=== PATIENT | male | born 1965 | race Caucasian/White ===

== ENCOUNTER 2016-03-07 19:34 | Emergency (ER) | payer OTHER ==
[~2016-03-07] VITALS: Ht 167.6 cm; Wt 102.1 kg
--- NOTE | ~2016-03-07 | EKG ---
[address] [place] [address] ELECTROCARDIOGRAM REPORT Name: KIARA LENNON Room #: DEP JC Girard#: [id number] Admission: 03/07/16 Attend Phys: Discharge: 03/08/16 Date of : 69 Report #: [id number] THIS REPORT FOR: //name// 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
[~2016-03-07 19:34] MED LIST: APAP650 PO; AZITHROMYCIN250 MG PO; MUCINEX600 MG PO; PREDNISONE 20 M20 M1 PO; PROVENTIL HFA6.7 G1 INH; ZPAK PO
[2016-03-07 20:39] LABS: HEMATOCRIT 47.4 % (42.0-52.0); HEMOGLOBIN 16.3 gm/dL (14.0-18.0); MCHC 34.5 % (28.0-37.0); PLATELET COUNT 159 thou/uL (150-400); RBC 5.45 mil/uL (4.50-6.00); RDW 13.7 % (10.5-14.5); WBC 10.4 thou/uL (4.0-11.0)
[2016-03-07 20:40] LABS: MANUAL DIFF YES
[2016-03-07 20:50] LABS: CALCIUM 9.1 mg/dL (8.5-10.1); CREATININE 0.9 mg/dL (0.6-1.3); POTASSIUM 3.7 mmol/L (3.5-5.1)
[2016-03-07 21:05] LABS: ABSOLUTE NEUTROPHILS 9.3 thou/uL (1.4-8.2); TOTAL CELL COUNT 100
[2016-03-07 21:06] LABS: ANISOCYTOSIS 1+
[2016-03-07] MEDS ORDERED: PREDNISONE 20 M20 MG PO (22:58)
[2016-03-07] MEDS ORDERED: IBUPROFEN 800800 MG PO (22:58)
[2016-03-07] MEDS ORDERED: APAP500 PO (22:58)
[2016-03-07] MEDS ORDERED: VENTOLIN HFA 1818 GM INH (22:58)
[2016-03-07 23:38] VITALS: BP 121/76
== END 2016-03-08 | disposition home or self-care (01) ==
LOC: ER 19:34
PROVIDERS: Physician Assistant
DX: J11.1 Influenza due to unidentified influenza virus with other respiratory manifestations (principal); J45.901 Unspecified asthma with (acute) exacerbation; I10 Essential (primary) hypertension

== ENCOUNTER 2016-03-10 13:35 | Inpatient (IN) | payer OTHER ==
[~2016-03-10] VITALS: Ht 152.4 cm; Wt 99.8 kg
--- NOTE | ~2016-03-10 | EKG ---
[address] [address] ELECTROCARDIOGRAM REPORT Name: KIARA LENNON Room #: 304-P ADM IN M.R.#: [id number] Admission: 03/10/16 Attend Phys: Kye Nolasco MD Discharge: Date of : 69 Report #: [id number] THIS REPORT FOR: //name// 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 : 1965 Requested By: Lobo Banuelos Order Number: [id number] MD: Wally Raymond Measurements Intervals [place] Rate: 102 P: 51 CT: 158 QRS: -9 QRSD: 97 T: 133 QT: 338 QTc: 441 Interpretive Statements Sinus tachycardia LVH with secondary repolarization abnormality Compared to ECG 03/10/2016 13:51:36 Sinus rhythm no longer present Ventricular premature complex(es) no longer present Electronically Signed On 03-13-2016 15:53:23 METAL WINDOW FRAME MAKER by Wally Raymond [email or web address] <ELECTRONICALLY SIGNED> By: Wally Raymond MD 03/13/16 1553 1222 1222 Wally Raymond MD /EPI
--- NOTE | ~2016-03-10 | H ---
[facility] [place] [address] [place] [address] HISTORY AND PHYSICAL Name: KIARA LENNON Room #: 304-P [facility] IN M.R.#: [id number] Admission: 03/10/16 Attend Phys: Kye Nolasco MD Discharge: 03/13/16 Date of : 69 Report #: [id number] THIS REPORT FOR: //name// CC: SHAMIR physician/PCP Kye Nolasco DATE OF SERVICE: 03/10/2016 TYPE OF DICTATION: Admission H and P. After mmmq-gs-zmvm encounter, I did see the patient and examined him on the day of admission. CHIEF COMPLAINT: Cough. HISTORY OF PRESENT ILLNESS: This is a 50-year-old male who presented to the Emergency Department with complaint of few days of short of breath and coughing. He was found to be in asthma exacerbation. The patient received 2 treatments of albuterol and IV magnesium and the IV Solu-Medrol and he improved, but the ER ____ he is not feeling well to let him go home, they like him to be observed overnight. PAST MEDICAL HISTORY: Positive for bronchial asthma. The patient had a recent flu treated. MEDICATIONS: None. MEDICAL ALLERGIES: No known drug allergy. REVIEW OF SYSTEMS: Except that mentioned in the HPI, all other systems are negative. SOCIAL HISTORY: Works. He does not smoke. FAMILY HISTORY: Noncontributory. PAST SURGICAL HISTORY: None. PHYSICAL EXAMINATION: GENERAL: The patient is alert, oriented, not in acute distress. VITAL SIGNS: Temperature 37.3, pulse is 98, respirations 20, blood pressure 131/88. HEENT: PERRLA. Intact extraocular muscles. No icterus. NECK: Supple, no JVD, no bruits, no thyroid. CHEST: Good air entry both sides. Normal respiratory effort. CARDIOVASCULAR: Regular rate and rhythm. No murmur, rub, or gallop. [facility] [address] [place] [address] HISTORY AND PHYSICAL Name: KIARA LENNON Room #: 304-P [facility] [id number] Admission: 03/10/16 Attend Phys: Kye Nolasco MD Discharge: 03/13/16 Date of : 69 Report #: [id number] ABDOMEN: Lax, nontender, positive bowel sounds, no organomegaly appreciated. EXTREMITIES: No cyanosis, clubbing, or edema. NEUROLOGIC: Cranial nerves 2-12 are intact. No focal neurological signs. LABORATORY DATA: No blood work done in the ER. The patient has a chest x-ray which was negative. ASSESSMENT AND PLAN: 1. Asthma exacerbation. The patient seems to be in a better condition now. He is going to be observed overnight in the hospital. He is going to be on bronchodilators and steroids for the next 24 hours. The patient has a history of asthma for 6 years now. We are going to check his labs also. 2. History of flu. The patient received treatment for that, but we are going to check the flu ____ again. 3. The patient is full code. 4. Gastrointestinal and deep vein thrombosis prophylaxis. <ELECTRONICALLY SIGNED> By: Kye Nolasco MD 03/19/16899 165 23 Kye Nolasco MD /nt
--- NOTE | ~2016-03-10 | EKG ---
[address] [address] ELECTROCARDIOGRAM REPORT Name: KIARA LENNON Room #: 170-11 ADM IN M.R.#: [id number] Admission: 03/10/16 Attend Phys: Kye Nolasco MD Discharge: Date of : 69 Report #: [id number] THIS REPORT FOR: //name// [facility] ED Test Date: 2016-03-10 Test Time: 13:51:36 Pat Name: KIARA LENNON Department: Room: 170 Gender: M Business Systems Architect: SALLY : 1965 Requested By: Lobo Banuelos Order Number: [id number] MD: Wally Raymond Measurements Intervals [place] Rate: 98 P: 45 [place]: 162 QRS: -10 QRSD: 96 T: 119 QT: 340 QTc: 435 Interpretive Statements Sinus rhythm Ventricular premature complex Probable left atrial enlargement LVH with secondary repolarization abnormality Electronically Signed On 03-10-2016 17:25:46 LABORATORY MECHANIC HELPER by Wally Raymond [email or web address] <ELECTRONICALLY SIGNED> By: Wally Raymond MD 03/10/16 1725 1351 1351 Wally Raymond MD /PADMINI
--- NOTE | ~2016-03-10 | EKG ---
[address] [address] ELECTROCARDIOGRAM REPORT Name: GIAN LENNONO Room #: 304-P ADM IN M.R.#: [id number] Admission: 03/10/16 Attend Phys: Kye Nolasco MD Discharge: Date of : [birth year] Report #: [id number] THIS REPORT FOR: //name// [facility] Test Date: 2016-03-13 Test Time: 12:22:25 Pat Name: KIARA LENNON Department: Room: 304 P Gender: M Program Aide Group Work: ROLAN : 1965 Requested By: Everton Orta Order Number: [id number] MD: Measurements Intervals [place] Rate: 102 P: 51 MD: 158 QRS: -9 QRSD: 97 T: 133 QT: 338 QTc: 441 Interpretive Statements Sinus tachycardia LVH with secondary repolarization abnormality Compared to ECG 03/10/2016 13:51:36 Sinus rhythm no longer present Ventricular premature complex(es) no longer present [email or web address] By: 1222 1222 Epiphany EpiphanyMD /EPI
[~2016-03-10 13:35] MED LIST changes: +APAP500 PO; +IBUPROFEN 800800 MG PO; +PREDNISONE 20 M20 MG PO; +VENTOLIN HFA 1818 GM INH
[2016-03-10 13:36] VITALS: BP 151/77
[2016-03-10] MEDS ORDERED: PREDNISONE 20 M20 MG PO (15:33)
[2016-03-10] MEDS ORDERED: OSELB75 PO (15:33)
[2016-03-10] MEDS ORDERED: ULTRAM50 MG PO (16:12)
[2016-03-10 18:18] VITALS: BP 120/77
[2016-03-10 19:30] VITALS: BP 139/72
[2016-03-11 00:20] VITALS: BP 135/88
[2016-03-11 04:00] VITALS: BP 154/82
[2016-03-11 06:03] LABS: HEMATOCRIT 47.1 % (42.0-52.0); HEMOGLOBIN 15.9 gm/dL (14.0-18.0); MCH 29.4 pg (26.0-34.0); MCHC 33.7 % (28.0-37.0); MCV 87.2 fL (80.0-100.0); RBC 5.4 mil/uL (4.50-6.00); RDW 13.6 % (10.5-14.5); WBC 8.5 thou/uL (4.0-11.0)
[2016-03-11 06:43] LABS: CALCIUM 8.5 mg/dL (8.5-10.1); CREATININE 0.8 mg/dL (0.6-1.3); POTASSIUM 3.8 mmol/L (3.5-5.1)
[2016-03-11 08:23] VITALS: BP 151/103
[2016-03-11 11:24] VITALS: BP 141/88
[2016-03-11 14:18] LABS: HIV-1 P24 AG Nonreactive (Nonreactive)
[2016-03-11 16:10] VITALS: BP 163/107
[2016-03-11 20:10] VITALS: BP 147/89
[2016-03-12 03:45] VITALS: BP 120/70
[2016-03-12 07:35] VITALS: BP 148/111
[2016-03-12 10:35] LABS: ABSOLUTE NEUTROPHILS 13.9 thou/uL (1.4-8.2); BASOPHILS 0.6 % (0.0-2.0); HEMATOCRIT 48.3 % (42.0-52.0); HEMOGLOBIN 16.2 gm/dL (14.0-18.0); MCH 29.3 pg (26.0-34.0); MCHC 33.6 % (28.0-37.0); MCV 87.3 fL (80.0-100.0); MONOCYTES 4.4 % (1.0-8.0); PLATELET COUNT 235 thou/uL (150-400); RBC 5.53 mil/uL (4.50-6.00); RDW 13.3 % (10.5-14.5); WBC 16.1 thou/uL (4.0-11.0)
[2016-03-12 10:40] LABS: MANUAL DIFF NO
[2016-03-12 11:22] VITALS: BP 141/91
[2016-03-12 16:18] VITALS: BP 153/85
[2016-03-12 19:47] VITALS: BP 133/80
[2016-03-13] VITALS (7 sets, daily range): BP systolic 134–171; BP diastolic 84–109
[2016-03-13 05:54] LABS: HEMOGLOBIN 15.2 gm/dL (14.0-18.0); MCH 28.9 pg (26.0-34.0); MCHC 32.3 % (28.0-37.0); MCV 89.4 fL (80.0-100.0); RBC 5.26 mil/uL (4.50-6.00); RDW 13.3 % (10.5-14.5); WBC 16.5 thou/uL (4.0-11.0)
[2016-03-13 06:02] LABS: CALCIUM 8.3 mg/dL (8.5-10.1); CREATININE 0.8 mg/dL (0.6-1.3); POTASSIUM 3.8 mmol/L (3.5-5.1)
[2016-03-13] MEDS ORDERED: OSELB75 PO (11:56)
[2016-03-13] MEDS ORDERED: PROMETHAZINE-C120 ML PO (11:57)
[2016-03-13] MEDS ORDERED: PREDNISONE 10 M10 MG PO (11:58)
== END 2016-03-13 20:20 | disposition home or self-care (01) | DRG 194 ==
LOC: ER 13:35 → EROBS 16:27 → 3N 16:27 → EROBS 18:37 → 3N 18:44
PROVIDERS: Hospitalist
DX: J09.X2 Influenza due to identified novel influenza A virus with other respiratory manifestations (principal); J45.901 Unspecified asthma with (acute) exacerbation; I10 Essential (primary) hypertension; Z87.01 Personal history of pneumonia (recurrent); Z79.899 Other long term (current) drug therapy
CPT/HCPCS: 10096

== ENCOUNTER 2018-06-08 14:18 | Inpatient (IN) | payer OTHER ==
[~2018-06-08] VITALS: Ht 162.6 cm; Wt 104.3 kg
[~2018-06-08 14:18] MED LIST changes: +OSELB75 PO; +PREDNISONE 10 M10 MG PO; +PROMETHAZINE-C120 ML PO; +ULTRAM50 MG PO
[2018-06-08 14:19] VITALS: BP 140/85
[2018-06-08 14:44] LABS: ABSOLUTE NEUTROPHILS 5.6 thou/uL (1.4-8.2); EOSINOPHILS 3.3 % (0.0-3.0); HEMATOCRIT 48.9 % (42.0-52.0); HEMOGLOBIN 16.7 gm/dL (14.0-18.0); LYMPHOCYTES 31.7 % (24.0-44.0); MCH 30.5 pg (26.0-34.0); MCHC 34.1 g/dL (28.0-37.0); MCV 89.2 fL (80.0-100.0); MONOCYTES 6.5 % (1.0-8.0); PLATELET COUNT 193 thou/uL (150-400); POLYS 57.5 % (36.0-66.0); RBC 5.49 mil/uL (4.50-6.00); RDW 13.4 % (10.5-14.5); WBC 9.7 thou/uL (4.0-11.0)
[2018-06-08 14:50] LABS: POTASSIUM 3.4 mmol/L (3.5-5.1)
[2018-06-08 14:59] LABS: MAGNESIUM 1.8 mg/dL (1.8-2.4); TROPONIN-I 0.06 ng/mL (<0.06)
[2018-06-08 16:03] VITALS: BP 137/82
[2018-06-08] MEDS ORDERED: VENTOLIN HFA 1818 GM INH (16:05)
[2018-06-08] MEDS ORDERED: COZAAR 25 MG TA25 M2 PO (16:05)
--- NOTE | 2018-06-08 16:29 | EKG ---
[address] [address] ELECTROCARDIOGRAM REPORT Name: KIARA LENNON Room #: 170-11 ADM IN M.R.#: [id number] ������������������ Admission: 06/08/18 ������������������ Attend Phys: Chuy Rucker MD Discharge: ������������������ Date of : 69 Report #: [id number] ����������������������������������������������������������������� [id number] THIS REPORT FOR: //name// [facility] ED Test Date: 2018-06-08 Test Time: 14:23:03 Pat Name: KIARA LENNON Department: Room: 170 Gender: M Paleontology Teacher: DUSTY : 1965 Requested By: Ken Kellogg Order Number: [id number] MD: Wally Raymond Measurements Intervals [place] Rate: 94 P: 13 [place]: 194 QRS: -28 QRSD: 110 T: 110 QT: 379 QTc: 474 Interpretive Statements Sinus rhythm Atrial premature complexes Probable left atrial enlargement LVH with secondary repolarization abnormality Compared to ECG 03/13/2016 12:22:25 Atrial premature complex(es) now present Sinus tachycardia no longer present Electronically Signed On 06-08-2018 16:29:03 CDT by Wally Raymond [email or web address] ��������������������������������������������� <ELECTRONICALLY SIGNED> ���������������������������������������� By: Wally Raymond MD ��������������������������������������������� 06/08/18 1629 1423 1423 Wally Raymond MD /EPI
--- NOTE | 2018-06-08 16:29 | EKG ---
[address] [place] [address] ELECTROCARDIOGRAM REPORT Name: KIARA LENNON Room #: 170-11 ADM IN M.R.#: [id number] ������������������ Admission: 06/08/18 ������������������ Attend Phys: Chuy Rucker MD Discharge: ������������������ Date of : 69 Report #: [id number] ����������������������������������������������������������������� [id number] THIS REPORT FOR: //name// [facility] ED Test Date: 2018-06-08 Test Time: 15:35:54 Pat Name: KIARA LENNON Department: Room: 170 Gender: M Cosmetologist Apprentice: CARLOTA : 1965 Requested By: Ken Kellogg Order Number: [id number] MD: Wally Raymond Measurements Intervals [place] Rate: 97 P: 41 KY: 197 QRS: -35 QRSD: 110 T: 114 QT: 387 QTc: 492 Interpretive Statements Sinus rhythm Multiform ventricular premature complexes Borderline prolonged [place] interval LVH with IVCD and secondary repol abnrm Compared to ECG 03/13/2016 12:22:25 Ventricular premature complex(es) now present Intraventricular conduction delay now present Sinus tachycardia no longer present Electronically Signed On 06-08-2018 16:29:25 CDT by Wally Raymond [email or web address] ��������������������������������������������� <ELECTRONICALLY SIGNED> ���������������������������������������� By: Wally Raymond MD ��������������������������������������������� 06/08/18 1629 1535 1535 Wally Raymond MD /EPI
[2018-06-08 16:38] VITALS: BP 121/84
[2018-06-08 16:55] VITALS: BP 120/73
--- NOTE | 2018-06-08 18:19 | NUR ---
PT ARRIVED TO UNIT FROM ER. PT A&OX4, NICARAGUAN SPEAKING AND WIRELESS ENGINEER PHONE USED FOR ADMISSION QUESTIONS. ER NURSE STATED THAT MED REC AND ALLERGIES COMPLETED. DR. CARBAJAL CALLED FOR DIET ORDER AND PT ON HEART HEALTHY DIET. DR. Adalberto MUNSON CONSULTED. PT UP AD ANTONIETA. VITALS WNL EXCEPT FOR LOW GRADE FEVER. HE WAS SINUS RHYTHM ON TELEMETRY WITH PVCS. PT RESTING COMFORTABLY AND DENIES PAIN. WILL CONT WITH POC
[2018-06-08 19:10] VITALS: BP 117/78
[2018-06-08 21:15] LABS: CHOLESTEROL 182 mg/dL (<200); HDL CHOLESTEROL 32 mg/dL (>40); LDL CHOLESTEROL 118 mg/dL (<100); TC:HDL 5.7 Ratio (Not establshd); TRIGLYCERIDE 161 mg/dL (<150); VLDL 32 mg/dL (<40)
--- NOTE | 2018-06-08 23:19 | 2DMMODE ---
[facility] [address] [employer] [place] [address] 2 D/M-MODE ECHOCARDIOGRAM Name: KIARA LENNON Room #: 209-P ADM IN M.R.#: [id number] ������������� Admission: 06/08/18 ������������� Attend Phys: Chuy Rucker MD Discharge: ��� ������������� ��� Date of : 69 Date of Service: 06/08/18 2319 �� Report #: [id number] �������� ��������������������������������������������[id number] THIS REPORT FOR: //name// APPROVED REPORT Study performed: 06/08/2018 20:51:46 EXAM: Comprehensive 2D, Doppler, and color-flow Echocardiogram Patient Location: Bedside Room #: 209 Status: routine BSA: 2.08 HR: 71 bpm BP: 117/78 mmHg Rhythm: NSR with PVC's Other Information Study Quality: Adequate Technically limited study due to body habitus. Indications Arrhythmia Elevated Troponin Echo Enhancing Agent Indication: Endocardial border delineation Agent(s) / Amount(s) Used: Optison 3 cc 2D Dimensions IVSd: 13.69 (7-11mm) LVOT Diam: 22.05 (18-24mm) LVDd: 52.31 mm PWd: 14.98 (7-11mm) Ascending Ao: 37.09 (22-36mm) LVDs: 41.23 (25-40mm) Aortic Root: 34.14 mm Volumes Left Atrial Volume (Systole) Single Plane 4CH: 45.98 mL Single Plane 2CH: 69.88 mL LA ESV Index: 31.00 mL/m2 Aortic Valve AoV Peak Asim.: 1.34 m/s AO Peak Gr.: 7.16 mmHg LVOT Max P.16 mmHg LVOT Max V: 0.73 m/s [facility] [address] [place] [address] 2 D/M-MODE ECHOCARDIOGRAM Name: KIARA LENNON Room #: 209-P ADM IN [facility].#: [id number] ������������� Admission: 06/08/18 ������������� Attend Phys: Chuy Rucker MD Discharge: ��� ������������� ��� Date of : 69 Date of Service: 06/08/18 2319 �� Report #: [id number] �������� ��������������������������������������������[id number] KAYODE Vmax: 2.09 cm2 Pulmonary Valve PV Peak Asim.: 0.86 m/s PV Peak Gr.: 2.99 mmHg Left Ventricle The left ventricle is normal size. basilar hypokinesis Moderate concentric left ventricular hypertrophy. Left ventricular systolic function is mildly decreased. LVEF is 45-50%. Right Ventricle Right ventricle is not well visualized. Atria The left atrium size is normal. Aortic Valve The aortic valve is normal in structure. Trace aortic regurgitation. There is no aortic valvular stenosis. Mitral Valve The mitral valve is normal in structure. Trace mitral regurgitation. No evidence of mitral valve stenosis. Tricuspid Valve The tricuspid valve is normal in structure. There is no tricuspid valve regurgitation noted. Unable to assess PA pressure. Pulmonic Valve Pulmonic valve is not well visualized. Great Vessels The aortic root is normal in size. Pericardium There is no pericardial effusion. <Conclusion> The left ventricle is normal size. LVEF is 45-50%. basilar hypokinesis Right ventricle is not well visualized. The mitral valve is normal in structure. Trace mitral regurgitation. The tricuspid valve is normal in structure. There is no tricuspid valve regurgitation noted. [facility] [address] [place] [address] 2 D/M-MODE ECHOCARDIOGRAM Name: KIARA LENNON Room #: 209-P [facility] IN M.R.#: [id number] ������������� Admission: 06/08/18 ������������� Attend Phys: Chuy Rucker MD Discharge: ��� ������������� ��� Date of : 69 Date of Service: 06/08/182318 �� Report #: [id number] �������� ��������������������������������������������[id number] Unable to assess PA pressure. Pulmonic valve is not well visualized. There is no pericardial effusion. ��������������������������������������������� <ELECTRONICALLY SIGNED> ���������������������������������������� By: Alex Stacy MD ��������������������������������������������� 06/08/182318 18 18 Aelx Stacy MD /INF
[2018-06-09] VITALS (8 sets, daily range): BP systolic 112–141; BP diastolic 71–98
--- NOTE | 2018-06-09 01:42 | HC ---
[facility] [address] [place] [address] CONSULTATION Name: LENNONKIARA Room #: 209-P ADM IN M.R.#: [id number] Admission: 06/08/18 ������������������ Attend Phys: Chuy Rucker MD Discharge: ������������������ Date of : 69 Report #: [id number] THIS REPORT FOR: //name// CC: SHAMIR physician/PCP Chuy Rucker INCOMPLETE DICTATION HISTORY OF PRESENT ILLNESS: This is a very pleasant 52-year-old gentleman who was working . DICTATION ENDS HERE. ��������������������������������������������� <ELECTRONICALLY SIGNED> ���������������������������������������� By: Alex Stacy MD ��������������������������������������������� 06/09/18 0142 2355 0002 Alex Stacy MD /nt
--- NOTE | 2018-06-09 01:42 | HC ---
[facility] [place] [address] [place] [address] CONSULTATION Name: KIARA LENNON Room #: 209-P ADM IN M.R.#: [id number] Admission: 06/08/18 ������������������ Attend Phys: Chuy Rucker MD Discharge: ������������������ Date of : 69 Report #: [id number] THIS REPORT FOR: //name// CC: [facility] physician/PCP Chuy Rucker HISTORY OF PRESENT ILLNESS: This is a very pleasant 52-year-old gentleman who was at work when he became lightheaded. The patient states that he noted that approximately 2 hours prior to presenting in the Emergency Room, this began. He was asked by coworkers whether he was feeling well or not and he stated he did not. EMS was summoned and upon arrival, it was found to have the patient in ventricular tachycardia, was given IV amiodarone and symptoms resolved with rhythm change. The patient denies any chest pain, but did feel his heart pounding. Upon questioning, he does describe noticing the progressive fatigability and shortness of breath with exertion. He also states that he noted having some squeezing and heaviness in his chest to the point where even going up a few steps gets him profoundly short of breath. He states that this is quite unusual for him. He has never had any cardiac issues in the past, but he stated that he clearly thought that today he was going to during the episode. PAST MEDICAL HISTORY: Significant for: 1. Hypertension. 2. Dyslipidemia. 3. Urinary hesitance. 4. Degenerative joint disease. MEDICATIONS: Qbwm-red-yhdvsji ibuprofen, acetaminophen, sstu-zxi-vcddjuz, promethazine and codeine solution, losartan and albuterol inhaler. ALLERGIES: No known drug allergies. PAST SURGICAL HISTORY: Significant for no major surgical procedures. DIAGNOSTIC STUDIES: Electrocardiogram: Normal sinus rhythm. REVIEW OF SYSTEMS: Except for symptoms previously mentioned and those commensurate with comorbid state, the 10-point review of system is negative. PHYSICAL EXAMINATION: GENERAL: Well-developed, well-nourished male, resting comfortably, in no acute distress. VITAL SIGNS: Present and noted in the chart. HEENT: Normocephalic, atraumatic. Pupils are equal, round, reactive to light and accommodation. Extraocular muscles are intact. Sclerae and conjunctivae are anicteric. NECK: JVD is normal. Carotid upstrokes are bilaterally symmetrical. No bruits [facility] [address] [place] [address] CONSULTATION Name: KIARA LENNON Room #: 209-P [facility] IN M.R.#: [id number] Admission: 06/08/18 ������������������ Attend Phys: Chuy Rucker MD Discharge: ������������������ Date of : 69 Report #: [id number] are heard. No thyromegaly. No lymphadenopathy. LUNGS: Clear to auscultation. No wheezes, rhonchi or crackles. No CVA tenderness. CARDIAC: Demonstrates a regular rhythm. Normal first and second heart sounds. No ventricular or atrial gallops, no rubs noted. No murmurs. No lifts or heaves, PMI normal. ABDOMEN: Soft, nontender, nondistended. Normal bowel sounds. EXTREMITIES: Without cyanosis, clubbing or edema. Distal pulses are intact. DTR symmetrical. NEUROLOGIC: Cranial nerves 2-12 are grossly normal and symmetrical. PSYCHIATRIC: Alert, oriented with normal affect. SKIN: Warm and dry. LABORATORY DATA: Laboratory demonstrates a BUN of 19. Troponin is 0.06. Creatinine is 1.0. TSH is 2.243. H and H 16.7 and 48.9. RADIOLOGIC: Chest x-ray failed to demonstrate acute processes. IMPRESSION AND PLAN: 1. Palpitations with near syncope and ventricular tachyarrhythmia. This is quite concerning to exclude ischemic origin. We will proceed with obtaining echocardiogram tonight, so that we can evaluate left ventricular function. 2. Progressive dyspnea with chest discomfort, suspicious for coronary artery disease, especially with the development of ventricular tachycardia. In view of this, I am going to expedite diagnosis, treatment and prognosis determination by heading for angiography. The risks, complications and alternatives to cath, angioplasty and conscious sedation were discussed with the patient. He voices understanding and wishes to proceed. 3. Hypertension. We will monitor blood pressure to make sure it is at target. 4. Dyslipidemia. Discussed the [place] [employer] step 1 diet with the patient. He was given handouts following optimization determination as above so that he can incorporate that into his daily dietary habits. ��������������������������������������������� <ELECTRONICALLY SIGNED> ���������������������������������������� By: Alex Stacy MD ��������������������������������������������� 06/09/18 0142 0000 0043 Alex Stacy MD /nt
--- NOTE | 2018-06-09 05:50 | NUR ---
ASSUMED PT CARE AT 1900 WITH NO SIGN OF DISTRESS NOTED. PT IS ALERT AND ORIENTED. PT IS HONG KONGER-SPEAKING. SCHEDULED MEDS ADMINISTERED TO PT. PT IS VISITED BY THE CARD MAKER WHO EXPLAINS TO PATIENT THE PROCEDURE TO BE DONE TO PT. PT VERBALIZES UNDERSTANDING, COSENT FORM IS SIGNED, DENIES ANY FURTHER NEEDS AT THIS TIME.
--- NOTE | 2018-06-09 14:37 | NUR ---
Case opened to follow for dc planning. Pt is a&ox4 and independent prior to admission. He works and lives with his sister Amanda in an apt. He only speaks Greek. He does not have health insurance coverage. [employer] packet provided and reveiwed. Cm to voucher 30 days of scripts at dc to allow for pt to setup f/u care. [facility] for cardiology and [facility] for primary care. Contact numbers for both provided on the pt's dc instructions as well. Pt to have cardiac cath this afternoon. Dc home likely tomorrow.
--- NOTE | 2018-06-09 19:48 | NUR ---
ASSUMED CARE OF PT AT SHIFT CHANGE. ASSESSMENTS CHARTED. MEDS GIVEN PER APR. PT ALERT AND ORIENTED, UP AD ANTONIETA. NON MALTESE SPEAKING. TRAVELING INVENTORY ASSOCIATE USED THROUGHOUT DAY AND WAS ABLE TO COMMUNICATE EFFECTIVELY WITH PT. PT DENIES PAIN, DENIES CHEST PAIN. O2 SATS REMAIN WNL ON ROOM AIR. NO S/SX OF CARD OR RESP DISTRESS NOTED. PT WENT FOR CATH THIS AFTERNOON, PT ON ORDERED BEDREST, TOLERATING WELL. URINE OUTPUT ADEQUATE, APPETITE GOOD. DENIES CONCERNS AT THIS TIME. WILL CONT TO MONITOR AND FOLLOW POC.
--- NOTE | 2018-06-10 05:15 | NUR ---
ASSUMED PT CARE AT 1900. VSS PT A&0X4 MALTESE SPEAKING ONLY. R GROIN SITE CDI, NO HEMATOMA OR BRUISING. NO COMPLAINTS OF PAIN OR TENDERNESS. PT IS STABLE, SLEPT WELL ALL NIGHT, WILL BE D/C TODAY.
[2018-06-10 05:30] VITALS: BP 114/87
[2018-06-10 07:15] VITALS: BP 140/97
--- NOTE | 2018-06-10 07:54 | NUR ---
ASSUMED CARE OF PT AT 0700. R GROIN SITE C/D/I WITH NO S/SX OF HEMATOMA. NO PAIN/CHEST PAIN REPORTED BY THE PT. VSS. NSR ON THE MONITOR. PT RESTING IN BED WITH CALL LIGHT IN REACH. WILL CONTINUE TO MONITOR.
[2018-06-10] MEDS ORDERED: METOPROLOL SUCC25 M1 PO (11:57)
[2018-06-10] MEDS ORDERED: ACETAMINOPHEN325 M1 PO (11:57)
[2018-06-10] MEDS ORDERED: ASPIRIN325 PO (11:57)
[2018-06-10 12:13] VITALS: BP 120/80
--- NOTE | 2018-06-10 12:37 | NUR ---
PT UP AMBULATING IN HALLS WITH SUPERVISION OF NURSING STAFF TO MONITOR CARDIAC STATUS. RN REPORTS PT TOLERATING ACTIVITY WITHOUT INCIDENT AND PT DOES NOT NECESSITATE THE SERVICES OF P.T. IN THE HOSPITAL SETTING AT THIS TIME.
[2018-06-10 16:50] VITALS: BP 126/88
[2018-06-10 19:11] VITALS: BP 116/80
[2018-06-11] VITALS (13 sets, daily range): BP systolic 78–135; BP diastolic 41–91
--- NOTE | 2018-06-11 05:12 | NUR ---
ASSUMED PT'S CARE AROUND 1930; AZERI SPEAKING ONLY; AOX4; NO C/O PAIN; RELATIVE AT BED SIDE DURING REPORT; NO C/O PAIN DURING ASSESSMENT; REQUESTED TO TAKE A SHOWER; HS MEDICATION GIVEN; NPO AFTER MIDNIGHT; ST. FEELING CONSTIPATED, BUT PASSING GAS; NO MEDICATION GIVEN; VS WNL; ABLE TO REST MOST OF THE NIGHT; ASSESSMENT CHARGED; FOLLOWING POC; WILL PASS ON REPORT.
--- NOTE | 2018-06-11 16:57 | NUR ---
Pt had pacemaker placement today. Plan is dc to home tomorrow. Scripts can be purchased otc and at [employer] $4 list. [facility] and [facility] info provided for f/u care.
--- NOTE | 2018-06-11 18:35 | NUR ---
ASSUMED CARE OF PT AT 0700. PT WAS A&0 X4 WITH CLEAR LUNG SOUNDS AND S1, S2 HEART SOUNDS WITH A NORMAL SINUS RHYTHM WITH PVCS. PT REPORTED NO PAIN OR DIFFICULTY BREATHING. PT WAS SCHEDULED FOR A ICD INSERTION AT 0930 AND WANTED THE DOCTOR TO EXPLAIN THE PROCEDURE IN [place] TO HIM. DR. GARCIA VISITED PT AND EXPLAINED PROCEDURE IN [place] AND OBTAINED CONSENT FOR THE PROCEDURE FROM THE PT. THE PT RETURNED WITH LEFT ARM IMMOBILIZED AND AN IV INSERTED IN THE RIGHT HAND. LEFT HAND IV BECAME INFILTRATED AND NEEDED TO BE REMOVED. PTS VITALS REMAINED STABLE AFTER PROCEDURE. PT WAS ABLE TO VOID AFTER PROCEDURE. PT REPORTED PAIN AT INCISION SITE RATING IT A 7/10. ACETAMINOPHEN WAS GIVEN PRESCRIBED TO REDUCE PT PAIN. WILL CONTINUE TO MONITOR PTS PAIN AND UNDERSTANDING OF ICD.
--- NOTE | 2018-06-11 18:49 | NUR ---
AGREE WITH STUDENT NURSE MAKI, ASSESSMENTS AND CHARTING. SOLOMON LEONARD RN
[2018-06-12 01:08] VITALS: BP 114/78
[2018-06-12 04:55] VITALS: BP 122/87
--- NOTE | 2018-06-12 05:25 | NUR ---
RECEIVED PT'S CARE AT 1910; PT. ON BED AT 45D; OFF FROM 45D; AOX4; C/O PAIN ON LUE AT MOVEMENT; EDUCATED ABOUT PAIN MANAGEMENT; ST. UNDERSTANDING; EDUCATED ABOUT NO PUSHIN OR PULLING; KEEPING LUE IMMOBILIZED; ST. UNDERSTANDING; EDUCATED ABOUT CALLING WHEN NEEDED TO STAND UP IN ORDER TO AVOID TO PULLING; ST. UNDERSTANDING; PRN PAIN MEDICATION GIVEN X2 DURING THE NIGHT; PAIN RE-ASSESSMENT SLEEPING; DRESSING DRY; NO HEMATOMA; VS WNL; BLADDER SCANED AFTER VOID; ZERO RESIDUAL; ASSESSMENT CHARGED; FOLLOWING POC; WILL PASSED ON REPORT.
[2018-06-12 08:36] VITALS: BP 130/91
[2018-06-12 10:58] VITALS: BP 119/79
[2018-06-12 11:34] VITALS: BP 113/76
--- NOTE | 2018-06-12 12:07 | NUR ---
ASSUMED CARE OF PT AT SHIFT CHANGE. ASSESSMENT CHARTED. MEDS GIVEN PER APR. PT ALERT AND ORIENTED, SPEAKS QATARI, VSS, PAIN IN ICD INCISION AREA DENIES NEED FOR PAIN MEDS. O2 SATS WNL ON ROOM AIR, NO S/SX OF CARD OR RESP DISTRESS NOTED. RT GROIN BANDAGE CDI NO HEMATOMA, ICD BANDAGE ON CHEST CDI NO HEMATOMA. DC ORDERS ACKNOWLEDGED AND IMPLEMENTED, DC PAPERWORK AND INSTRUCTIONS DISCUSSED WITH PT IN QATARI, PT COMMUNICATES UNDERSTANDING. PT LEFT UNIT AT APPROX 1205 WITH ALL BELONGINGS ACCOMPANIED BY SISTER. TELE REMOVED, IV REMOVED.
--- NOTE | 2018-06-13 15:08 | NUR ---
[facility] CALLED AND RX WERE NOT SIGNED. I VERIFIED RX FOR THE PHARMACIST.
--- NOTE | 2018-06-14 13:05 | CATHLAB ---
[facility] [place] [address] INVASIVE PROCEDURE REPORT Name: KIARA LENNON Room #: 209-P DIS IN M.R.#: [id number] ������������� Admission: 06/08/18 ������������� Attend Phys: Chuy Rucker MD Discharge: ��� 06/12/18 ������������� ��� Date of : 69 Date of Service: 06/14/18 1305 �� Report #: [id number] �������� ��������������������������������������������[id number] THIS REPORT FOR: //name// APPROVED REPORT Study performed: 06/11/2018 10:25:26 Patient Status: In-Patient Room #: Event Personnel: Alex Stacy Plumbing Assembler, Denzel Posada RN, Gi Corbett RTR, BRE Gomez, Sujata Garcia Monitor Exam: insertion of a single lead ICD, supervision of conscious sedation Indications: symptomatically ventricular tachycardia with near syncope The patient is a 52 year-old male with a history of in the medic ventricular tachycardia with near syncope. Intraoperative Conscious Sedation Sedation start time: 1055 Case end Time: 1225 Versed 6 mg dEMEROL 75MG. Implanted Devices: [employer] Durata 7122Q/58cm. Serial #[id number]. Implant Date Jun 11, 2018. RV Capture: 0.4V@ 0.5ms, 0.7mA (11:37am) Sense: 8.8 mV/s (11:37am) Impedance 619 ohms (11.37am) 10 V Stimulation. Procedure After explaining the risks, benefits, and alternative options, informed consent was obtained from the patient. The patient was brought to the cardiac catheterization lab and the left chest and shoulder were prepped and draped in the usual fashion. During this case, Fluoroscopy and visipaque 20cc were used for imaging. After establishment of conscious sedation the proposed incision site was anesthetized with 1% lidocaine. The subcutaneous tissue was also anesthetized to provide analgesia through the proposed pocket site. Utilizing 11 blade incision was carried forth. At cauterized bleeders were then controlled. Using both sharp and blunt dissection a pocket was generated. Utilizing a micropuncture Phillips a modified Seldinger approach a single stick into the left subclavian vein was performed. [address] [address] [place] [address] INVASIVE PROCEDURE REPORT Name: KIARA LENNON Room #: 209-P [facility] IN .R.#: [id number] ������������� Admission: 06/08/18 ������������� Attend Phys: Chuy Rucker MD Discharge: ��� 06/12/18 ������������� ��� Date of : 69 Date of Service: 06/14/18 1305 �� Report #: [id number] �������� ��������������������������������������������[id number] On funduscopic realization the defibrillator lead was then positioned in the right ventricular septal wall protection sensing thresholds were verified. Providing adequate slack and the lead if was then sewn in place with 3 single suture stitches of a 20 nonabsorbable material. The pocket was irrigated with Videx solution device connected and placed in the pocket. Closure proceeded with the nonabsorbable sutures in a running locking stitch at both this subcutaneous tissues with 2 layers of closure. The skin was closed with a 30 absorbable running subcutaneous particulars stitch. Steri-Strips were then placed 4 x 4 OpSite. Patient tolerated procedure well there were no complications Complications The patient tolerated the procedure well and there were no complications associated with the procedure. Findings Specimens Removed: No Estimated Blood Loss: 10 mL Conclusion 1. Successful insertion of a [employer] single lead ICD Recommendations 1. Routine post ICD insertion protocol. ��������������������������������������������� <ELECTRONICALLY SIGNED> ���������������������������������������� By: Alex Stacy MD ��������������������������������������������� 06/14/18 1305 1305 1305 Alex Stacy MD /INF
== END 2018-06-12 12:05 | disposition home or self-care (01) | DRG 227 ==
LOC: ER 14:18 → EROBS 15:43 → 2N 15:43
PROVIDERS: Emergency Medicine; Internal Medicine; ADMIT Internal Medicine
DX: I47.2 Ventricular tachycardia (principal); I10 Essential (primary) hypertension; E78.5 Hyperlipidemia, unspecified; M19.90 Unspecified osteoarthritis, unspecified site; J45.909 Unspecified asthma, uncomplicated; I25.10 Atherosclerotic heart disease of native coronary artery without angina pectoris; Z87.01 Personal history of pneumonia (recurrent); Z79.899 Other long term (current) drug therapy

== ENCOUNTER 2019-10-08 09:42 | Emergency (ER) | payer OTHER ==
[~2019-10-08] VITALS: Ht 167.6 cm; Wt 104.3 kg
[~2019-10-08 09:42] MED LIST changes: +ACETAMINOPHEN325 M1 PO; +ASPIRIN325 PO; +COZAAR 25 MG TA25 M2 PO; +METOPROLOL SUCC25 M1 PO
[2019-10-08 10:38] LABS: ABSOLUTE NEUTROPHILS 5.4 thou/uL (1.4-8.2); BASOPHILS 0.8 % (0.0-2.0); EOSINOPHILS 2.8 % (0.0-3.0); LYMPHOCYTES 26.4 % (24.0-44.0); MCH 30.8 pg (26.0-34.0); MCV 90.6 fL (80.0-100.0); MONOCYTES 5.4 % (1.0-8.0); PLATELET COUNT 186 thou/uL (150-400); POLYS 64.6 % (36.0-66.0); RBC 5.19 mil/uL (4.50-6.00); RDW 13.3 % (10.5-14.5); WBC 8.3 thou/uL (4.0-11.0)
[2019-10-08 10:41] LABS: ANION GAP 12 mmol/L (7-16); BUN 17 mg/dL (7-18); CALCIUM 8.5 mg/dL (8.5-10.1); CHLORIDE 103 mmol/L (98-107); CO2 25 mmol/L (21-32); CREATININE 0.9 mg/dL (0.7-1.3); GLUCOSE 200 mg/dL (74-106); POTASSIUM 3.6 mmol/L (3.5-5.1); SODIUM 140 mmol/L (136-145)
[2019-10-08 10:52] LABS: ALBUMIN 3.9 g/dL (3.4-5.0); MAGNESIUM 1.7 mg/dL (1.8-2.4); SGOT 46 U/L (15-37); SGPT 76 U/L (30-65); TOTAL BILIRUBIN 0.8 mg/dL (0.2-1.0); TOTAL PROTEIN 7.6 g/dL (6.4-8.2); TROPONIN-I <0.06 ng/mL (<0.06)
[2019-10-08] MEDS ORDERED: MECLIZINE HCL25 M1 PO (11:00)
[2019-10-08] MEDS ORDERED: VALIUM2 MG PO (11:00)
[2019-10-08 11:12] VITALS: BP 137/84
--- NOTE | 2019-10-08 11:40 | EKG ---
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: [facility] : 1965 Requested By: Oscar Hung Order Number: [id number] MD: Wally Raymond Measurements Intervals [place] Rate: 76 P: 1 ND: 185 QRS: -24 QRSD: 125 T: 134 QT: 426 QTc: 480 Interpretive Statements Sinus rhythm Ventricular bigeminy LVH with IVCD and secondary repol abnrm Borderline prolonged QT interval Compared to ECG 06/08/2018 15:35:54 No significant changes Electronically Signed On 10-08-2019 11:40:38 CDT by Wally Raymond [email or web address] <ELECTRONICALLY SIGNED> By: Wally Raymond MD 10/08/19 1140 1011 1011 Wally Raymond MD /EPI
== END 2019-10-08 11:18 | disposition home or self-care (01) ==
LOC: ER 09:42
PROVIDERS: Emergency Medicine
DX: H81.12 Benign paroxysmal vertigo, left ear (principal); I10 Essential (primary) hypertension; J45.909 Unspecified asthma, uncomplicated; Z79.82 Long term (current) use of aspirin; Z79.899 Other long term (current) drug therapy

== ENCOUNTER 2020-12-29 19:36 | Inpatient (IN) | payer OTHER ==
[~2020-12-29] VITALS: Ht 162.6 cm; Wt 100.7 kg
[~2020-12-29 19:36] MED LIST changes: +MECLIZINE HCL25 M1 PO; +VALIUM2 MG PO
[2020-12-29 19:42] VITALS: BP 144/88
[2020-12-29 20:25] LABS: CALCIUM 8.8 mg/dL (8.5-10.1); POTASSIUM 3.9 mmol/L (3.5-5.1)
[2020-12-29 20:31] LABS: ABSOLUTE NEUTROPHILS 5.4 thou/uL (1.4-8.2); BASOPHILS 1.4 % (0.0-2.0); HEMATOCRIT 47.1 % (42.0-52.0); HEMOGLOBIN 16.3 gm/dL (14.0-18.0); LYMPHOCYTES 30.5 % (24.0-44.0); MCH 31.5 pg (26.0-34.0); MCHC 34.6 g/dL (28.0-37.0); MONOCYTES 7.9 % (1.0-8.0); PLATELET COUNT 200 thou/uL (150-400); POLYS 56.2 % (36.0-66.0); RBC 5.17 mil/uL (4.50-6.00); RDW 13.2 % (10.5-14.5); WBC 9.6 thou/uL (4.0-11.0)
[2020-12-29 20:35] LABS: TOTAL BILIRUBIN 1.1 mg/dL (0.2-1.0); TOTAL PROTEIN 7.8 g/dL (6.4-8.2)
[2020-12-29 21:33] VITALS: BP 154/111
[2020-12-29] MEDS ORDERED: METOPROLOL TART25 MG PO (21:58)
[2020-12-29] MEDS ORDERED: ASA81BEC PO (21:59)
[2020-12-29] MEDS ORDERED: LOSARTAN POTAS100 MG PO (21:59)
[2020-12-29] MEDS ORDERED: LIPITOR40 MG PO (21:59)
[2020-12-29] MEDS ORDERED: FLOMAX0.4 MG PO (22:00)
[2020-12-29] MEDS ORDERED: FLECAINIDE ACET50 M2 PO (22:00)
[2020-12-29] MEDS ORDERED: CLARITIN10 M3 PO (22:00)
[2020-12-29 22:35] VITALS: BP 129/85
[2020-12-30 03:25] LABS: CHOLESTEROL 127 mg/dL (<200); HDL CHOLESTEROL 31 mg/dL (>40); LDL CHOLESTEROL 81 mg/dL (<100); TC:HDL 4.1 Ratio (Not establshd); TRIGLYCERIDE 75 mg/dL (<150); VLDL 15 mg/dL (<40)
[2020-12-30 03:30] LABS: SERUM ASSESSMENT Clear
[2020-12-30 03:30] LABS: CALCIUM 8.6 mg/dL (8.5-10.1); CREATININE 0.9 mg/dL (0.7-1.3); POTASSIUM 3.7 mmol/L (3.5-5.1)
--- NOTE | 2020-12-30 04:33 | NUR ---
ADMITTED THIS PATIENT FROM THE EMERGENCY AT 1900H.PATIEN TIS ALERT AND ORIENTED X4.ON ROOM AIR BREATHING SPONTANEOUSLY.NOT IN PAIN OR DISTRESS.ADMISSION ASSESSMENT DONE.ALL NEEDS ATTENDED.TO CONTINOUSLY MONITOR.
[2020-12-30 05:23] VITALS: BP 103/70
[2020-12-30 07:56] VITALS: BP 115/76
[2020-12-30 11:53] VITALS: BP 120/78
--- NOTE | 2020-12-30 12:32 | EKG ---
[address] [address] [facility] [place] [address] ELECTROCARDIOGRAM REPORT Name: KIARA LENNON Room #: 219-P ADM IN M.R.#: [id number] Admission: 12/29/20 Attend Phys: Melida Brunson MD Discharge: Date of : 69 Report #: [id number] [facility] ED Test Date: 2020-12-29 Test Time: 19:40:05 Pat Name: KIARA LENNON Department: Room: 219 Gender: M Internal Controls Consultant: CHERELLE : 1965 Requested By: Jonas Hdz Order Number: [id number] MD: Willi Christensen Measurements Intervals [place] Rate: 82 P: 53 HI: 214 QRS: -38 QRSD: 126 T: 123 QT: 370 QTc: 432 Interpretive Statements Sinus rhythm Ventricular premature complexes Prolonged HI interval Incomplete left bundle branch block Compared to ECG 10/08/2019 10:11:24 First degree AV block now present Electronically Signed On 12-30-2020 12:32:28 HOME IMPROVEMENT INSTALLER by Willi Christensen [email or web address] <ELECTRONICALLY SIGNED> By: Willi Christensen MD, [facility] 12/30/20 1232 39 39 Willi Christensen MD, [facility] /EPI
--- NOTE | 2020-12-30 12:39 | EKG ---
[facility] [place] [address] ELECTROCARDIOGRAM REPORT Name: KIARA LENNON Room #: 219-P ADM IN M.R.#: [id number] Admission: 12/29/20 Attend Phys: Melida Brunson MD Discharge: Date of : 69 Report #: [id number] [facility] Test Date: 2020-12-30 Test Time: 08:14:49 Pat Name: KIARA LENNON Department: Room: 219 P Gender: M Machine Milker: SRI : 1965 Requested By: Cassandra Buchanan Order Number: [id number] MD: Willi Christensen Measurements Intervals [place] Rate: 65 P: 46 AL: 218 QRS: -38 QRSD: 125 T: 118 QT: 451 QTc: 469 Interpretive Statements Sinus rhythm Prolonged AL interval Nonspecific IVCD with LAD Abnormal T, consider ischemia, lateral leads Compared to ECG 12/29/2020 19:40:05 Ventricular premature complex(es) no longer present Electronically Signed On 12-30-2020 12:39:31 FISH CLEANER MACHINE TENDER by Willi Christensen [email or web address] <ELECTRONICALLY SIGNED> By: Willi Christensen MD, [facility] 12/30/20 1239 3 Willi Christensen MD, [facility] /EPI
[2020-12-30] MEDS ORDERED: COZAAR 50 MG TA50 M1 PO (13:21)
[2020-12-30] MEDS ORDERED: MECLIZINE HCL25 M1 PO (13:21)
[2020-12-30 14:46] VITALS: BP 120/78
[2020-12-30 15:09] VITALS: BP 120/78
== END 2020-12-30 18:33 | disposition home or self-care (01) | DRG 313 ==
LOC: ER 19:36 → EROBS 20:53 → 2N 22:14
PROVIDERS: Emergency Medicine; Nurse Practitioner Family; ADMIT Internal Medicine; ATTEND Internal Medicine
PROC: 4B02XTZ Measurement of Cardiac Defibrillator, External Approach (ICD-10-PCS; principal; 2020-12-29)
DX: R07.89 Other chest pain (principal); I10 Essential (primary) hypertension; J45.909 Unspecified asthma, uncomplicated; E78.5 Hyperlipidemia, unspecified; Z79.82 Long term (current) use of aspirin; I25.10 Atherosclerotic heart disease of native coronary artery without angina pectoris; Z20.822 Contact with and (suspected) exposure to COVID-19; Z82.49 Family history of ischemic heart disease and other diseases of the circulatory system; Z95.810 Presence of automatic (implantable) cardiac defibrillator; Z79.899 Other long term (current) drug therapy; Z91.19 Patient's noncompliance with other medical treatment and regimen
CPT/HCPCS: 10081